=== PATIENT | female | born 1990 | race Caucasian/White ===

== ENCOUNTER 2021-10-14 03:30 | Inpatient (IN) | payer OTHER ==
[2021-10-14] MEDS ORDERED: Ondansetron 4 MG/2 ML SDV IVPUSH PRN (05:00)
[2021-10-14] MEDS ORDERED: Oxytocin/Lactated Ringers 10 UNIT/1,000 ML BAG IV SCH ×2 (05:00)
[2021-10-14] MEDS ORDERED: Nalbuphine 10 MG/1 ML Vial IVPUSH PRN (05:00)
[2021-10-14] MEDS ORDERED: Sodium Chloride 0.9% 10 ML Syringe FLUSH PRN (05:00)
[2021-10-14] MEDS ORDERED: Lidocaine 1% 50 ML MDV INJECT ONE (05:00)
[2021-10-14] MEDS ORDERED: Acetaminophen 325 MG Tab PO PRN (05:00)
--- NOTE | 2021-10-14 05:11 | PCM.LDHP ---
L&D History of Present Illness - General Date of Service: 10/14/21 Admit Problem/Dx: Patient Status Order with Admit Dx/Problem 10/14/21 03:39 Patient Status [ADT] Routine Admission Diagnosis/Problem Admission Diagnosis/Problem 10/14/21 04:58 Cesilia is a 30-year-old 4 para 3-0-0-3 female at 38-6/7 weeks gestational age with an ROSE of 10/22/2021 admitted to labor and delivery in active labor with progressive cervical change. Source of Information: Patient, Other History Limitations: Reports: No Limitations - History of Present Illness Introduction:: Cesilia is a 30-year-old 4 para 3-0-0-3 female at 38-6/7 weeks gestational age with an ROSE of 10/22/2021 admitted to labor and delivery in active labor with progressive cervical change. 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: Musculoskeletal History: Reports: Other (See Below) Other Musculoskeletal History: shoulder surgery Social & Family History - Family History Family Medical History: No Pertinent Family History - Caffeine Use Caffeine Use: Reports: Coffee - Living Situation & Occupation Living situation: Reports: Occupation: Employed L&D Exam - Vital Signs Vital Signs: Last Vital Signs Temp 37.0 C 10/14/21 04:51 Pulse 84 10/14/21 04:51 Resp 14 10/14/21 04:51 BP 110/68 10/14/21 04:51 Pulse Ox 99 10/14/21 04:51 Orders Last 24hrs: Active Orders 24 hr Category Date Time Status Patient Status [ADT] Routine ADT 10/14/21 03:39 Active Non Stress Test [RC] PER UNIT ROUTINE Care 10/14/21 03:39 Active Vaginal Exam [RC] PRN Care 10/14/21 03:40 Active Vital Signs [RC] PER UNIT ROUTINE Care 10/14/21 03:39 Active Resuscitation Status Routine Resus Stat 10/14/21 03:39 Ordered
[2021-10-14] MEDS: Lactated Ringers 1,000 ML IV SCH ×3 (05:43→09:32)
[2021-10-14] MEDS ORDERED: Lidocaine 1.5% with EPINEPHrine 1:200,000 5 ML Amp ONE (06:40)
[2021-10-14] MEDS ORDERED: ePHEDrine 50 MG/ML SDV IVPUSH PRN (06:41)
[2021-10-14] MEDS ORDERED: diphenhydrAMINE 50 MG/ML SDV IVPUSH PRN (06:41)
[2021-10-14] MEDS ORDERED: fentaNYL 100 MCG/2 ML SDV EPIDUR PRN (06:41)
[2021-10-14] MEDS ORDERED: Bupivacaine/fentaNYL/NS 100 ML Bag EPIDUR PRN (06:41)
[2021-10-14] MEDS ORDERED: fentaNYL 100 MCG/2 ML SDV ONE (06:48)
--- NOTE | 2021-10-14 07:04 | PCM.LDHP ---
L&D History of Present Illness - General Date of Service: 10/14/21 Admit Problem/Dx: Patient Status Order with Admit Dx/Problem 10/14/21 03:39 Patient Status [ADT] Routine 10/14/21 05:02 Patient Status [ADT] Routine Admission Diagnosis/Problem Admission Diagnosis/Problem 10/14/21 06:51 Cesilia is a 21-year-old 4 para 3-0-0-3 female with an ROSE of 10/22/2021 presently at 38-6/7 weeks gestational age admitted in active labor with progressive cervical dilation. Source of Information: Patient History Limitations: Reports: No Limitations - History of Present Illness Introduction:: Cesilia is a 21-year-old 4 para 3-0-0-3 female with an ROSE of 10/22/2021 presently at 38-6/7 weeks gestational age admitted in active labor with progressive cervical dilation. Started labor at the number of the head down. It appears she is an active early labor. 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 Patient had 3 vaginal livers in the past. All normal pregnancies. Ma crosomia noted. course relatively unremarkable. First noemí visit was at [address] Adelfo Mackenzie. Group B strep is negative. Normal prequel testingfemale . Tdap given 08/06/2021. Flu shot given 08/06/2021. She is rubella equivocal. Laboratory testing : Blood is O+ with a negative antibody screen. First labs showed hemoglobin 12.7 g/dL platelets 302,000. Pap smear showed ASCUS changes with negative HPV. Rubella titer showed equivocal results. Urine culture is negative for pathogens. HIV assay and Hb S Ag titer were negative and nonreactive. Clenia, gonorrhea, HCV antibodies are negative. Prequel is negative for transient 1813 and 21. Second trimester labs showed hemoglobin 11.7 g/dL. Platelets 309,000. Diabetic screen 132. Strep screen negative. Allergies: None Medications: 1. Cimetidine 200 mg p.o. 3 times daily 2. vitamins daily Past medical history: 1. depression with last 2. Hematoma of last 3. x3 4. Abnormal Pap smear 5. Childhood asthma Past surgical history: 1. Appendectomy 2002 2. Elbow surgery 2002 Family history positive for grandmother with schizophrenia and a grandmother with kidney disease. Social history: Patient is . She lives in [place], [place]. 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 She denies any significance alcohol, drugs or tobacco. Review of systems: In general patient has no complaints. These been active. Contractions increase in strength. Skin: Negative Lungs: No infectious symptoms or shortness of breath Cardiovascular: No chest pain or exercise intolerance Breasts: No lumps, changes in size, pain, dimpling, discharge or axillary or supraclavicular concerns. GI: Negative : changes noted. Musculoskeletal: Negative Neurological: Negative In general the patient is well-developed, well-nourished, pleasant female of stated age in no acute distress. Skin is warm dry without lesions. HEENT, neck and back within normal limits. Lungs are clear with good breath sounds in all lung krishnan. Cardiovascular exam shows regular and rhythm without murmurs. Abdomen is gravid with fundal height of 38 cm on last evaluation clinic. Genital per digital exam as described above. Extremities and neurological exam are grossly within normal limits. - Related Data Allergies/Adverse Reactions: Allergies Allergy/AdvReac Type Severity Reaction Status Date / Time No Known Allergies Allergy Verified 10/14/21 05:05 Home Medications: Home Meds Ondansetron [Zofran ODT] 4 mg PO Q6H PRN 10/14/21 [History] Pnv,Calcium 72/Iron/Folic Acid [ Plus Tablet] 1 tab PO DAILY 10/14/21 [History] RX: Cimetidine [Heartburn Relief] 1 tab PO DAILY PRN 10/14/21 [History] Past Medical History HEENT History: Reports: Other (See Below) Other HEENT History: broken tooth/dental pain Respiratory History: Reports: Asthma Other Respiratory History: as a child Gastrointestinal History: Reports: Chronic Constipation, GERD 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: Musculoskeletal History: Reports: Other (See Below) Other Musculoskeletal History: elbow surgery Hematologic History: Reports: Anemia - Past Surgical History GI Surgical History: Reports: Appendectomy Female Surgical History: Reports: Other (See Below) Other Female Surgeries/Procedures: colposcopy- ASCUS HPV(-) Social & Family History - Family History Family Medical History: No Pertinent Family History - Tobacco Use Tobacco Use Status *Q: Never Tobacco User Second Hand Smoke Exposure: No - Caffeine Use Caffeine Use: Reports: None - Recreational Drug Use Recreational Drug Use: No - Living Situation & Occupation Living situation: Reports: Occupation: Employed H&P Review of Systems - Review of Systems: Review Of Systems: See Below L&D Exam - Exam Exam: See Below - Vital Signs Vital Signs: Last Vital Signs Temp 37.0 C 10/14/21 04:51 Pulse 84 10/14/21 04:51 Resp 14 10/14/21 04:51 BP 110/68 10/14/21 04:51 Pulse Ox 99 10/14/21 04:51 Weight: 95.254 kg - Patient Data Lab Results Last 24 hrs: Laboratory Results - last 24 hr 10/14/21 10/14/21 Range/Units 05:04 05:37 WBC 12.89 H (3.98-10.04) K/mm3 RBC 4.27 (3.98-5.22) M/mm3 Hgb 12.6 (11.2-15.7) gm/dl Hct 38.3 (34.1-44.9) % MCV 89.7 (79.4-94.8) fl MCH 29.5 (25.6-32.2) pg MCHC 32.9 (32.2-35.5) g/dl RDW Std Deviation 47.1 H (36.4-46.3) fL Plt Count 290 (182-369) K/mm3 MPV 8.6 L (9.4-12.3) fl Neut % (Auto) 78.8 H (34.0-71.1) % Lymph % (Auto) 13.0 L (19.3-51.7) % [place] % (Auto) 7.1 (4.7-12.5) % Eos % (Auto) 0.5 L (0.7-5.8) Baso % (Auto) 0.2 (0.1-1.2) % Neut # (Auto) 10.16 H (1.56-6.13) K/mm3 Lymph # (Auto) 1.68 (1.18-3.74) K/mm3 [place] # (Auto) 0.91 H (0.24-0.36) K/mm3 Eos # (Auto) 0.06 (0.04-0.36) K/mm3 Baso # (Auto) 0.03 (0.01-0.08) K/mm3 POC Glucose 76 (70-99) mg/dL Result Diagrams: 10/14/21 05:37 - Problem List (1) 38 weeks gestation of SNOMED Code(s): 58562865 ICD Code: Z3A.38 - 38 WEEKS GESTATION OF Status: Acute Current Visit: Yes (2) History of depression SNOMED Code(s): 317229256 ICD Code: Z87.59 - PERSONAL HISTORY OF COMP OF PREG, CHLDBRTH AND THE PUERP; Z86.59 - PERSONAL HISTORY OF OTHER MENTAL AND BEHAVIORAL DISORDERS Status: Acute Current Visit: Yes Problem List Initiated/Reviewed/Updated: Yes Orders Last 24hrs: Active Orders 24 hr Category Date Time Status Patient Status [ADT] Routine ADT 10/14/21 05:02 Active Activity as Tolerated [RC] PFP Care 10/14/21 05:02 Active Communication Order [RC] ASDIRECTED Care 10/14/21 05:02 Active Heart Tones [RC] ASDIRECTED Care 10/14/21 05:02 Active Notify Provider [RC] ASDIRECTED Care 10/14/21 06:41 Active Notify Provider [RC] PFP Care 10/14/21 05:02 Active Notify Provider [RC] PRN Care 10/14/21 05:02 Active Peripheral IV Care [RC] . DIRECTED Care 10/14/21 05:02 Active Pump Management, Intrathecal [RC] ASDIRECTED Care 10/14/21 05:03 Active Urinary Catheter Assessment [RC] ASDIRECTED Care 10/14/21 05:00 Active Vaginal Exam [RC] PRN Care 10/14/21 03:40 Active Vital Signs [RC] PER UNIT ROUTINE Care 10/14/21 05:02 Active Regular Diet [DIET] Diet 10/14/21 Breakfast Active CORONAVIRUS COVID-19 ANOOP [MOLEC] Stat Lab 10/14/21 05:05 Received RAPID PLASMA REAGIN,RPR [CHEM] Routine Lab 10/14/21 05:37 Received Acetaminophen [TylenoL] Med 10/14/21 05:00 Active 650 mg PO Q4H PRN Bupivacaine/fentaNYL/NS [fentaNYL/Bupivacaine/NS 2 MCG- Med 10/14/21 06:41 Active 0.125% 100 ML] 100 ml EPIDUR ASDIRECTED PRN Lactated Ringers [Ringers, Lactated] 1,000 ml Med 10/14/21 05:00 Active IV ASDIRECTED Nalbuphine [Nubain] Med 10/14/21 05:00 Active 10 mg IVPUSH Q2H PRN Ondansetron [Zofran] Med 10/14/21 05:00 Active 4 mg IVPUSH Q4H PRN Oxytocin/Lactated Ringers [Pitocin in LR 10 Units/1,000 Med 10/14/21 05:00 Active ML] 10 unit in 1,000 ml IV .CONTINUOUS Oxytocin/Lactated Ringers [Pitocin in LR 10 Units/1,000 Med 10/14/21 05:00 Active ML] 10 unit in 1,000 ml IV TITRATE Sodium Chloride 0.9% [Saline Flush] Med 10/14/21 05:00 Active 10 ml FLUSH ASDIRECTED PRN diphenhydrAMINE [Benadryl] Med 10/14/21 06:41 Active 25 mg IVPUSH Q6H PRN ePHEDrine [ePHEDrine sulfate] Med 10/14/21 06:41 Active 5 mg IVPUSH ASDIRECTED PRN fentaNYL [Sublimaze] Med 10/14/21 06:41 Active 100 mcg EPIDUR Q3H PRN Electronic Heart Tones Ext w TOCO [WOMSER] Oth 10/14/21 05:02 Ordered Routine Electronic Heart Tones Internal [WOMSER] Per Unit Oth 10/14/21 05:02 Ordered Routine Peripheral IV Insertion Adult [OM.PC] Routine Oth 10/14/21 05:02 Ordered Resuscitation Status Routine Resus Stat 10/14/21 03:39 Ordered Medication Orders Acetaminophen (Acetaminophen 325 Mg Tab) 650 mg PO Q4H PRN PRN Reason: Pain (Mild 1-3) and fever Diphenhydramine HCl (Diphenhydramine 50 Mg/Ml Sdv) 25 mg IVPUSH Q6H PRN PRN Reason: pruritis Ephedrine Sulfate (Ephedrine 50 Mg/Ml Sdv) 5 mg IVPUSH ASDIRECTED PRN PRN Reason: Hypotension Fentanyl (Fentanyl 100 Mcg/2 Ml Sdv) 100 mcg EPIDUR Q3H PRN PRN Reason: Pain Fentanyl/Bupivacaine HCl (Bupivacaine/Fentanyl/Ns 100 Ml Bag) 100 ml EPIDUR ASDIRECTED PRN PRN Reason: Pain Lactated Ringer's (Ringers, Lactated) 1,000 mls @ 100 mls/hr IV ASDIRECTED MITCHEL Last Admin: 10/14/21 06:45 Dose: 100 mls/hr Documented by: Infusion: 10/14/21 06:45 Dose: 100 mls/hr Documented by: Admin: 10/14/21 05:43 Dose: 100 mls/hr Documented by: JOAQUIN Oxytocin/Lactated Ringer's (Pitocin In Lr 10 Units/1,000 Ml) 10 unit in 1,000 mls @ 12 mls/hr IV TITRATE MITCHEL; Protocol Oxytocin/Lactated Ringer's (Pitocin In Lr 10 Units/1,000 Ml) 10 unit in 1,000 mls @ 100 mls/hr IV .CONTINUOUS MITCHEL; Protocol Nalbuphine HCl (Nalbuphine 10 Mg/1 Ml Vial) 10 mg IVPUSH Q2H PRN PRN Reason: Pain Ondansetron HCl (Ondansetron 4 Mg/2 Ml Sdv) 4 mg IVPUSH Q4H PRN PRN Reason: Nausea/Vomiting Last Admin: 10/14/21 05:46 Dose: 4 mg Documented by: JOAQUIN Sodium Chloride (Sodium Chloride 0.9% 10 Ml Syringe) 10 ml FLUSH ASDIRECTED PRN PRN Reason: Keep Vein Open Assessment/Plan Comment:: 1. July a 30-year-old 4 para 3-0-0-3 female with an ROSE of 10/22/2021 admitted in early labor with progressive cervical change. 2. Moderate meconium stained amniotic fluid. 3. Group B strep negative 4. Patient is rubella equivocal. 5. Patient desires epidural in labor 6. Patient plans to bottlefeed. Plan: 1. Anticipate 2. Alert pediatrics about the meconium-stained amniotic fluid. Monitor heart tones very closely 3. Support bottle feeding plan 4. Routine admission labs.
--- NOTE | 2021-10-14 07:20 | PCM.PREANE ---
Preanesthetic Assessment - Procedure Proposed Procedure: Continuous labor epidural - Anesthesia/Transfusion/Family Hx Anesthesia History: Prior Anesthesia Without Reaction Transfusion History: No Prior Transfusion(s) - Review of Systems General: No Symptoms Pulmonary: No Symptoms Cardiovascular: No Symptoms Gastrointestinal: No Symptoms Neurological: No Symptoms Other: Reports: None - Physical Assessment Vital Signs: Last Vital Signs Temp 98.6 F 10/14/21 04:51 Pulse 84 10/14/21 04:51 Resp 14 10/14/21 04:51 BP 110/68 10/14/21 04:51 Pulse Ox 99 10/14/21 04:51 Height: 1.65 m Weight: 95.254 kg ASA Class: 2 Mental Status: Alert & Oriented x3 Airway Class: Mallampati = 2 Dentition: Reports: Normal Dentition Thyro-Mental Finger Breadths: 3 Mouth Opening Finger Breadths: 3 ROM/Head Extension: Full Lungs: Clear to Auscultation, Normal Respiratory Effort Cardiovascular: Regular Rate, Regular Rhythm - Lab Values: Laboratory Last Values WBC 12.89 K/mm3 (3.98-10.04) H 10/14/21 05:37 RBC 4.27 M/mm3 (3.98-5.22) 10/14/21 05:37 Hgb 12.6 gm/dl (11.2-15.7) 10/14/21 05:37 Hct 38.3 % (34.1-44.9) 10/14/21 05:37 MCV 89.7 fl (79.4-94.8) 10/14/21 05:37 MCH 29.5 pg (25.6-32.2) 10/14/21 05:37 MCHC 32.9 g/dl (32.2-35.5) 10/14/21 05:37 RDW Std Deviation 47.1 fL (36.4-46.3) H 10/14/21 05:37 Plt Count 290 K/mm3 (182-369) 10/14/21 05:37 MPV 8.6 fl (9.4-12.3) L 10/14/21 05:37 Neut % (Auto) 78.8 % (34.0-71.1) H 10/14/21 05:37 Lymph % (Auto) 13.0 % (19.3-51.7) L 10/14/21 05:37 [place] % (Auto) 7.1 % (4.7-12.5) 10/14/21 05:37 Eos % (Auto) 0.5 (0.7-5.8) L 10/14/21 05:37 Baso % (Auto) 0.2 % (0.1-1.2) 10/14/21 05:37 Neut # (Auto) 10.16 K/mm3 (1.56-6.13) H 10/14/21 05:37 Lymph # (Auto) 1.68 K/mm3 (1.18-3.74) 10/14/21 05:37 [place] # (Auto) 0.91 K/mm3 (0.24-0.36) H 10/14/21 05:37 Eos # (Auto) 0.06 K/mm3 (0.04-0.36) 10/14/21 05:37 Baso # (Auto) 0.03 K/mm3 (0.01-0.08) 10/14/21 05:37 POC Glucose 76 mg/dL (70-99) 10/14/21 05:04 SARS-CoV-2 RNA (ANOOP) Positive (NEGATIVE) H 10/14/21 05:05 - Allergies Allergies/Adverse Reactions: Allergies Allergy/AdvReac Type Severity Reaction Status Date / Time No Known Allergies Allergy Verified 10/14/21 05:05 - Acknowledgements Anesthesia Type Planned: Epidural Pt an Appropriate Candidate for the Planned Anesthesia: Yes Alternatives and Risks of Anesthesia Discussed w Pt/Guardian: Yes Pt/Guardian Understands and Agrees with Anesthesia Plan: Yes PreAnesthesia Questionnaire HEENT History: Reports: Other (See Below) Other HEENT History: broken tooth/dental pain Respiratory History: Reports: Asthma Other Respiratory History: as a child Gastrointestinal History: Reports: Chronic Constipation, 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: Musculoskeletal History: Reports: Other (See Below) Other Musculoskeletal History: elbow surgery Hematologic History: Reports: Anemia - Past Surgical History GI Surgical History: Reports: Appendectomy Female Surgical History: Reports: Other (See Below) Other Female Surgeries/Procedures: colposcopy- ASCUS HPV(-) - SUBSTANCE USE Tobacco Use Status *Q: Never Tobacco User Second Hand Smoke Exposure: No Recreational Drug Use History: No - HOME MEDS Home Medications: Home Meds Cimetidine [Heartburn Relief] 1 tab PO DAILY PRN 10/14/21 [History] Ondansetron [Zofran ODT] 4 mg PO Q6H PRN 10/14/21 [History] Pnv,Calcium 72/Iron/Folic Acid [ Plus Tablet] 1 tab PO DAILY 10/14/21 [History] - CURRENT (IN HOUSE) MEDS Current Meds: Current Medications Acetaminophen (Acetaminophen 325 Mg Tab) 650 mg PO Q4H PRN PRN Reason: Pain (Mild 1-3) and fever Diphenhydramine HCl (Diphenhydramine 50 Mg/Ml Sdv) 25 mg IVPUSH Q6H PRN PRN Reason: pruritis Ephedrine Sulfate (Ephedrine 50 Mg/Ml Sdv) 5 mg IVPUSH ASDIRECTED PRN PRN Reason: Hypotension Fentanyl (Fentanyl 100 Mcg/2 Ml Sdv) 100 mcg EPIDUR Q3H PRN PRN Reason: Pain Last Admin: 10/14/21 07:02 Dose: 100 mcg Documented by: Fentanyl/Bupivacaine HCl (Bupivacaine/Fentanyl/Ns 100 Ml Bag) 100 ml EPIDUR ASDIRECTED PRN PRN Reason: Pain Last Admin: 10/14/21 07:00 Dose: 100 ml Documented by: Lactated Ringer's (Ringers, Lactated) 1,000 mls @ 100 mls/hr IV ASDIRECTED MITCHEL Last Admin: 10/14/21 06:45 Dose: 100 mls/hr Documented by: Oxytocin/Lactated Ringer's (Pitocin In Lr 10 Units/1,000 Ml) 10 unit in 1,000 mls @ 12 mls/hr IV TITRATE MITCHEL; Protocol Oxytocin/Lactated Ringer's (Pitocin In Lr 10 Units/1,000 Ml) 10 unit in 1,000 mls @ 100 mls/hr IV .CONTINUOUS MITCHEL; Protocol Nalbuphine HCl (Nalbuphine 10 Mg/1 Ml Vial) 10 mg IVPUSH Q2H PRN PRN Reason: Pain Ondansetron HCl (Ondansetron 4 Mg/2 Ml Sdv) 4 mg IVPUSH Q4H PRN PRN Reason: Nausea/Vomiting Last Admin: 10/14/21 05:46 Dose: 4 mg Documented by: Sodium Chloride (Sodium Chloride 0.9% 10 Ml Syringe) 10 ml FLUSH ASDIRECTED PRN PRN Reason: Keep Vein Open Discontinued Medications Fentanyl (Fentanyl 100 Mcg/2 Ml Sdv) Confirm Administered Dose 100 mcg .ROUTE .[employer] ONE Stop: 10/14/21 06:49 Lidocaine HCl (Lidocaine 1% 50 Ml Mdv) 50 ml INJECT ONETIME ONE Stop: 10/14/21 05:01
--- NOTE | 2021-10-14 10:46 | PCM.SN.2 ---
- Free Text/Narrative Note: Stage 1- patient presented in active labor. Progressed to complete after AROM with overall reassuring heart tones. Meconium stained fluid. Epidural for anesthesia. Admission covid test positive. Stage 2 - Called that patient ready for delivery. Rapid of viable female, weight and apgars pending as some initial apnea. Delivery at 1030. Head delivered in controlled manner over intact perineum. Mild shoulder dystocia resolved with igor. Body and shoulders atraumatically. To maternal abdomen. Meconium stained. Pitocin initiated. Cord clamped and cut. To warmer. Cord blood collected. Stage 3 - of intact placenta. 3vc. No laceration. EBL 300. P
[2021-10-14] MEDS ORDERED: Misoprostol 200 MCG Tab ONE (11:32)
[2021-10-14] MEDS ORDERED: Witch Hazel Medicated Pads 40/Jar TOP PRN (11:33)
[2021-10-14] MEDS ORDERED: Benzocaine/Menthol 20%-0.5% Spray 78 GM Cannister TOP PRN (11:33)
[2021-10-14] MEDS ORDERED: Docusate Sodium 100 MG Cap PO PRN (11:33)
[2021-10-14] MEDS ORDERED: Misoprostol 200 MCG Tab PO STA (11:35)
[2021-10-14] MEDS: Ibuprofen 600 MG Tab PO PRN ×2 (12:22→20:53)
[2021-10-14] MEDS: Acetaminophen 325 MG Tab PO PRN (17:38)
[2021-10-15] MEDS: Ibuprofen 600 MG Tab PO PRN (03:46)
[2021-10-15] MEDS: Acetaminophen 325 MG Tab PO PRN (09:35)
--- NOTE | 2021-10-15 11:42 | PCM.DCSUM1 ---
Discharge Summary - Hospital Course Free Text/Narrative:: Cesilia is a 30-year-old 4 now para 4-0-0-4 female who was admitted on the a.m. of 10/14/2021 in active labor. She underwent AROM with resultant meconium-stained amniotic fluid. Her labor otherwise ensued as follows and delivery occurred as noted below: Stage 1- patient presented in active labor. Progressed to complete after AROM with overall reassuring heart tones. Meconium stained fluid. Epidural for anesthesia. Admission covid test positive. Stage 2 - Called that patient ready for delivery. Rapid of viable female, weight and apgars pending as some initial apnea. Delivery at 1030. Head delivered in controlled manner over intact perineum. Mild shoulder dystocia resolved with igor. Body and shoulders atraumatically. To maternal abdomen. Meconium stained. Pitocin initiated. Cord clamped and cut. To warmer. Cord blood collected. Stage 3 - of intact placenta. 3vc. No laceration. EBL 300. patient is done very well. Vital signs are stable. Patient is afebrile on postoperative day 1. She is bottlefeeding. She has minimal lochia, is ambulating well and is voiding without concerns. She desires discharge home. Condition: Good Diagnosis: Stroke: No - Discharge Data Discharge Date: 10/15/21 Discharge Disposition: Home, Self-Care 01 Condition: Good - Referral to Home Health Primary Care Physician: Adelfo Mackenzie MD - Discharge Diagnosis/Problem(s) (1) 38 weeks gestation of SNOMED Code(s): 53999422 ICD Code: Z3A.38 - 38 WEEKS GESTATION OF Status: Acute Current Visit: Yes (2) History of depression SNOMED Code(s): 216949626 ICD Code: Z87.59 - PERSONAL HISTORY OF COMP OF PREG, CHLDBRTH AND THE PUERP; Z86.59 - PERSONAL HISTORY OF OTHER MENTAL AND BEHAVIORAL DISORDERS Status: Acute Current Visit: Yes - Patient Instructions Diet: Regular Diet as Tolerated Activity: As Tolerated (No intercourse or tampons until bleeding resolves) Driving: May Drive Today Showering/Bathing: May Shower (May take a bath) Notify Provider of: Fever, Increased Pain, Swelling and Redness, Nausea and/or Vomiting - Discharge Plan Home Medications: Home Meds Cimetidine [Heartburn Relief] 1 tab PO DAILY PRN 10/14/21 [History] Ondansetron [Zofran ODT] 4 mg PO Q6H PRN 10/14/21 [History] Pnv,Calcium 72/Iron/Folic Acid [ Plus Tablet] 1 tab PO DAILY 10/14/21 [History] Acetaminophen [Tylenol] 650 mg PO Q6H PRN tablet 10/15/21 [Rx] Ibuprofen [Motrin] 600 mg PO Q6H PRN tablet 10/15/21 [Rx] Patient Handouts: Baby Blues, Care After Vaginal Delivery Referrals: Adelfo Mackenzie MD [Primary Care Provider] - (Please call to schedule follow up appointment in 2-3 weeks, Call sooner if needed.) - Discharge Summary/Plan Comment DC Time >30 min.: No Total # of Minutes for Discharge Time: 10 minutes Discharge Summary/Plan Comment: Discharge instructions: 1. Discharge home 2. Diet, activity and follow-up discussed with patient. Recommend nursing diet with increased calories and calcium. 3. Precautions given concern increased pain, bleeding, temperature, signs/symptoms of DVT/PE. 4. Medications per home medication was printed, discussed with and given to the patient. 5. Return to clinic-Dr. Mackenzie[facility] in 2 weeks. Diagnosis: Term -delivered Condition: Good - Patient Data Vitals - Most Recent: Last Vital Signs Temp 36.4 C 10/15/21 07:47 Pulse 62 10/15/21 07:47 Resp 16 10/15/21 07:47 BP 132/87 10/15/21 07:47 Pulse Ox 100 10/15/21 07:47 Weight - Most Recent: 95.254 kg I&O - Last 24 hours: Intake & Output 10/14/21 10/15/21 10/15/21 22:59 06:59 14:59 Intake Total 535 175 Balance 535 175 Lab Results - Last 24 hrs: Laboratory Results - last 24 hr 10/14/21 10/15/21 10/15/21 Range/Units 05:37 05:53 06:08 WBC 8.54 (3.98-10.04) K/mm3 RBC 3.50 L (3.98-5.22) M/mm3 Hgb 10.2 L D (11.2-15.7) gm/dl Hct 32.2 L (34.1-44.9) % MCV 92.0 (79.4-94.8) fl MCH 29.1 (25.6-32.2) pg MCHC 31.7 L (32.2-35.5) g/dl RDW Std Deviation 47.8 H (36.4-46.3) fL Plt Count 248 (182-369) K/mm3 MPV 9.2 L (9.4-12.3) fl Neut % (Auto) 54.3 (34.0-71.1) % Lymph % (Auto) 33.6 (19.3-51.7) % [place] % (Auto) 10.0 (4.7-12.5) % Eos % (Auto) 1.5 (0.7-5.8) Baso % (Auto) 0.4 (0.1-1.2) % Neut # (Auto) 4.64 (1.56-6.13) K/mm3 Lymph # (Auto) 2.87 (1.18-3.74) K/mm3 [place] # (Auto) 0.85 H (0.24-0.36) K/mm3 Eos # (Auto) 0.13 (0.04-0.36) K/mm3 Baso # (Auto) 0.03 (0.01-0.08) K/mm3 Manual Slide Review Abnormal smear POC Glucose 70 (70-99) mg/dL RPR Non-reactive (NONREACTIVE) Med Orders - Current: Current Medications Acetaminophen (Acetaminophen 325 Mg Tab) 650 mg PO Q6H PRN PRN Reason: Pain Last Admin: 10/15/21 09:35 Dose: 650 mg Documented by: Benzocaine/Menthol (Benzocaine/Menthol 20%-0.5% Kell 78 Gm Cannister) 0 gm TOP ASDIRECTED PRN PRN Reason: Perineal Comfort Measure Docusate Sodium (Docusate Sodium 100 Mg Cap) 100 mg PO BID PRN PRN Reason: Constipation Ibuprofen (Ibuprofen 600 Mg Tab) 600 mg PO Q6H PRN PRN Reason: Mild pain or fever Last Admin: 10/15/21 03:46 Dose: 600 mg Documented by: Krishna Steven (Krishna Steven Medicated Pads 40/Jar) 1 pad TOP ASDIRECTED PRN PRN Reason: Perineal Comfort Measure Discontinued Medications Acetaminophen (Acetaminophen 325 Mg Tab) 650 mg PO Q4H PRN PRN Reason: Pain (Mild 1-3) and fever Diphenhydramine HCl (Diphenhydramine 50 Mg/Ml Sdv) 25 mg IVPUSH Q6H PRN PRN Reason: pruritis Ephedrine Sulfate (Ephedrine 50 Mg/Ml Sdv) 5 mg IVPUSH ASDIRECTED PRN PRN Reason: Hypotension Fentanyl (Fentanyl 100 Mcg/2 Ml Sdv) 100 mcg EPIDUR Q3H PRN PRN Reason: Pain Last Admin: 10/14/21 07:02 Dose: 100 mcg Documented by: Fentanyl (Fentanyl 100 Mcg/2 Ml Sdv) Confirm Administered Dose 100 mcg .ROUTE .STK-MED ONE Stop: 10/14/21 06:49 Last Admin: 10/14/21 07:24 Dose: Not Given Documented by: Fentanyl/Bupivacaine HCl (Bupivacaine/Fentanyl/Ns 100 Ml Bag) 100 ml EPIDUR ASDIRECTED PRN PRN Reason: Pain Last Admin: 10/14/21 07:00 Dose: 100 ml Documented by: Lactated Ringer's (Ringers, Lactated) 1,000 mls @ 100 mls/hr IV ASDIRECTED MITCHEL Last Admin: 10/14/21 09:32 Dose: 100 mls/hr Documented by: Oxytocin/Lactated Ringer's (Pitocin In Lr 10 Units/1,000 Ml) 10 unit in 1,000 m ls @ 12 mls/hr IV TITRATE MITCHEL; Protocol Last Titration: 10/14/21 09:34 Dose: 6 munits/min, 36 mls/hr Documented by: Oxytocin/Lactated Ringer's (Pitocin In Lr 10 Units/1,000 Ml) 10 unit in 1,000 m ls @ 100 mls/hr IV .CONTINUOUS MITCHEL; Protocol Lidocaine HCl (Lidocaine 1% 50 Ml Mdv) 50 ml INJECT ONETIME ONE Stop: 10/14/21 05:01 Misoprostol (Misoprostol 200 Mcg Tab) Confirm Administered Dose 600 mcg .ROUTE .STK-MED ONE Stop: 10/14/21 11:33 Last Admin: 10/14/21 11:30 Dose: 600 mcg Documented by: Misoprostol (Misoprostol 200 Mcg Tab) 600 mcg PO STAT STA Stop: 10/14/21 11:36 Last Admin: 10/14/21 11:55 Dose: Not Given Documented by: Nalbuphine HCl (Nalbuphine 10 Mg/1 Ml Vial) 10 mg IVPUSH Q2H PRN PRN Reason: Pain Ondansetron HCl (Ondansetron 4 Mg/2 Ml Sdv) 4 mg IVPUSH Q4H PRN PRN Reason: Nausea/Vomiting Last Admin: 10/14/21 05:46 Dose: 4 mg Documented by: Sodium Chloride (Sodium Chloride 0.9% 10 Ml Syringe) 10 ml FLUSH ASDIRECTED PRN PRN Reason: Keep Vein Open
--- NOTE | 2021-10-15 11:52 | PCM48HPAN ---
Post Anesthesia Note - EVALUATION WITHIN 48HRS OF ANESTHETIC Vital Signs in Normal Range: Yes Patient Participated in Evaluation: No (per RN) Respiratory Function Stable: Yes Airway Patent: Yes Cardiovascular Function Stable: Yes Hydration Status Stable: Yes Pain Control Satisfactory: Yes Nausea and Vomiting Control Satisfactory: Yes Mental Status Recovered: Yes Vital Signs: Last Vital Signs Temp 36.4 C 10/15/21 07:47 Pulse 62 10/15/21 07:47 Resp 16 10/15/21 07:47 BP 132/87 10/15/21 07:47 Pulse Ox 100 10/15/21 07:47
== END 2021-10-15 11:35 | disposition home or self-care (01) | DRG 805 ==
LOC: JD.OBCHECK 03:30 → JD.OB 03:38 → JD.OBCHECK 05:01 → JD.OB 05:02 → OBSVTOIN 10:30 → JD.MS 11:06 → JD.OB 14:33
PROVIDERS: ADMIT Obstetrics & Gynecology; ATTEND Obstetrics & Gynecology
PROC: 10E0XZZ Delivery of Products of Conception, External Approach (ICD-10-PCS; principal; 2021-10-14)
PROC: 10907ZC Drainage of Amniotic Fluid, Therapeutic from Products of Conception, Via Natural or Artificial Opening (ICD-10-PCS; 2021-10-14)
PROC: 3E033VJ Introduction of Other Hormone into Peripheral Vein, Percutaneous Approach (ICD-10-PCS; 2021-10-14)
PROC: 3E0R3BZ Introduction of Anesthetic Agent into Spinal Canal, Percutaneous Approach (ICD-10-PCS; 2021-10-14)
DX: O98.52 Other viral diseases complicating childbirth (principal); U07.1 COVID-19; Z37.0 Single live birth; Z3A.38 38 weeks gestation of pregnancy; O77.0 Labor and delivery complicated by meconium in amniotic fluid; O66.0 Obstructed labor due to shoulder dystocia
CPT/HCPCS: 36415; 51702; 59025; 59409; 82947; 85025; 86592; A9270-GY; J2405; J2590; J3010; J7120; U0002